=== PATIENT | male | born 1945 | race Caucasian/White ===

== ENCOUNTER 2023-07-06 11:18 | Inpatient (IN) | payer MEDICARE, MEDICAID ==
[2023-07-06 11:33] LABS: BASOPHILS ABSOLUTE AUTO 0.02 10^3/uL (0.00-0.50); BASOPHILS PERCENT AUTO 0.2 % (0-1); EOSINOPHILS ABSOLUTE AUTO 0.08 10^3/uL (0.00-1.50); EOSINOPHILS PERCENT AUTO 0.8 % (0-6); HEMATOCRIT 35.4 % (42.0-52.0); HEMOGLOBIN 10.8 g/dL (14.0-18.0); IMMATURE GRAN ABSOLUTE AUTO 0.21 10^3/uL (0.00-0.49); LYMPHOCYTES ABSOLUTE AUTO 0.83 10^3/uL (0.60-5.00); LYMPHOCYTES PERCENT AUTO 7.9 % (24-44); MEAN CORPUSCULAR HEMOGLOBIN 29.4 pg (27.0-32.0); MEAN CORPUSCULAR HGB CONC 30.5 g/dL (32.0-36.0); MEAN CORPUSCULAR VOLUME 96.5 fL (83.0-97.0); MONOCYTES ABSOLUTE AUTO 1.35 10^3/uL (0.00-1.50); MONOCYTES PERCENT AUTO 12.9 % (0-10); NEUTROPHILS ABSOLUTE AUTO 7.98 x10^3/uL (1.80-8.00); NEUTROPHILS PERCENT AUTO 76.2 % (41-71); PLATELET COUNT,PLT 298 10^3/uL (150-400); RED BLOOD CELL COUNT 3.67 x10^6/uL (4.50-6.00); WHITE BLOOD CELL COUNT,WBC 10.5 10^3/uL (4.0-11.0)
[2023-07-06 11:45] LABS: ALANINE AMINOTRANSFERASE,ALT 19 U/L (12-78); ALBUMIN 1.9 g/dL (3.4-5.0); ALKALINE PHOSPHATASE 118 U/L (46-116); ASPARTATE AMNIOTRANSFERASE,AST 19 U/L (15-37); BILIRUBIN TOTAL 0.6 mg/dL (0.0-1.0); BLOOD UREA NITROGEN,BUN 37 mg/dL (7-18); C-REACTIVE PROTEIN 14.96 mg/dL (<=0.50); CARBON DIOXIDE,CO2 29 mmol/L (21-32); CHLORIDE,CL 103 mEq/L (98-106); GLUCOSE RANDOM 129 mg/dL (75-99); MAGNESIUM 2.3 mg/dL (1.8-2.4); SODIUM,NA 140 mEq/L (136-145)
[2023-07-06 11:49] LABS: ESTIMATED GFR 77 mL/min (>=60); POTASSIUM,K 2.9 mEq/L (3.5-5.0)
[2023-07-06] MEDS ORDERED: Sodium Chloride 0.9% 10 ML Syringe FLUSH PRN (12:12)
[2023-07-06] MEDS ORDERED: Acetaminophen 325 MG Tab PO PRN (12:12)
[2023-07-06] MEDS ORDERED: Docusate Sodium 100 MG Cap PO PRN (12:12)
[2023-07-06] MEDS ORDERED: Ondansetron 4 MG Tab.DIS PO PRN (12:12)
[2023-07-06] MEDS ORDERED: Ondansetron 4 MG/2 ML SDV IV PRN (12:12)
[2023-07-06 12:50] LABS: APPEARANCE,URINE CLEAR (CLEAR); BILIRUBIN,URINE NEGATIVE (NEGATIVE); COLOR,URINE DARK YELLOW (YELLOW); GLUCOSE,URINE NEGATIVE (NEGATIVE); KETONES,URINE NEGATIVE (NEGATIVE); LEUKOCYTE ESTERASE,URINE TRACE (NEGATIVE); NITRITE,URINE NEGATIVE (NEGATIVE); OCCULT BLOOD,URINE NEGATIVE (NEGATIVE); PH,URINE 5.5 (4.5-8.0); PROTEIN,URINE NEGATIVE (NEGATIVE)
[2023-07-06 13:02] LABS: BACTERIA,URINE OCCASIONAL /HPF (NOT SEEN); EPITHELIAL CELLS,URINE NOT SEEN /HPF (NOT SEEN); MUCUS,URINE FEW /HPF (NOT SEEN); RBC,URINE NOT SEEN /HPF (0-5); WBC,URINE 0-5 /HPF (0-5)
[2023-07-06] MEDS: Iopamidol 755 Mg/ML 100 ML Bottle IVPUSH ONE (14:06)
[2023-07-06] MEDS: Sodium Chloride 0.9% 1,000 ML IV SCH (15:01)
[2023-07-06] MEDS: Potassium Chloride Riders 20 MEQ in Premix Bag 1 BAG IV SCH (15:13)
[2023-07-06] MEDS: Ampicillin/Sulbactam Na 3 GM in Sodium Chloride 0.9% 100 ML IV SCH (15:25)
[2023-07-06] MEDS: Furosemide 40 MG/4 ML VIAL IVPUSH SCH (16:00)
[2023-07-06] MEDS: Potassium Chloride Riders 50 ML ONE (17:13)
[2023-07-06] MEDS: Carvedilol 12.5 MG Tab PO SCH (17:17)
[2023-07-06] MEDS: risperiDONE 1 MG Tab PO SCH (19:29)
[2023-07-06] MEDS: Divalproex Sodium Delayed-Release 250 MG Tab.CR PO SCH (19:29)
[2023-07-06] MEDS: Potassium Chloride 20 MEQ Tab.ER PO SCH (19:29)
[2023-07-07 07:34] LABS: BASOPHILS ABSOLUTE AUTO 0.01 10^3/uL (0.00-0.50); BASOPHILS PERCENT AUTO 0.1 % (0-1); EOSINOPHILS ABSOLUTE AUTO 0.14 10^3/uL (0.00-1.50); EOSINOPHILS PERCENT AUTO 1.8 % (0-6); HEMATOCRIT 33.6 % (42.0-52.0); HEMOGLOBIN 10.4 g/dL (14.0-18.0); IMMATURE GRAN ABSOLUTE AUTO 0.25 10^3/uL (0.00-0.49); IMMATURE GRAN PERCENT AUTO 3.3 % (0.0-4.9); LYMPHOCYTES ABSOLUTE AUTO 0.82 10^3/uL (0.60-5.00); LYMPHOCYTES PERCENT AUTO 10.7 % (24-44); MEAN CORPUSCULAR HEMOGLOBIN 29.5 pg (27.0-32.0); MEAN CORPUSCULAR VOLUME 95.2 fL (83.0-97.0); MONOCYTES ABSOLUTE AUTO 1.01 10^3/uL (0.00-1.50); MONOCYTES PERCENT AUTO 13.1 % (0-10); NEUTROPHILS ABSOLUTE AUTO 5.46 x10^3/uL (1.80-8.00); PLATELET COUNT,PLT 274 10^3/uL (150-400); RED BLOOD CELL COUNT 3.53 x10^6/uL (4.50-6.00); WHITE BLOOD CELL COUNT,WBC 7.7 10^3/uL (4.0-11.0)
[2023-07-07] MEDS: Losartan 25 MG Tab PO SCH (07:48)
[2023-07-07] MEDS: Cholecalciferol (Vitamin D3) 5,000 UNIT Tab PO SCH (07:49)
[2023-07-07 07:52] LABS: C-REACTIVE PROTEIN 10.39 mg/dL (<=0.50); CALCIUM 7.5 mg/dL (8.4-10.1); CREATININE 0.8 mg/dL (0.7-1.3); EST CRCL DRUG DOSING (CG) 71.28 mL/min; POTASSIUM,K 3.9 mEq/L (3.5-5.0)
[2023-07-07] MEDS: Polyethylene Glycol 3350 Powder 17 GM Packet PO PRN (08:07)
[2023-07-07] MEDS: Enoxaparin 40 MG/0.4 ML Syringe SUBCUT SCH (11:07)
[2023-07-08 07:40] LABS: BASOPHILS ABSOLUTE AUTO 0.02 10^3/uL (0.00-0.50); BASOPHILS PERCENT AUTO 0.3 % (0-1); EOSINOPHILS ABSOLUTE AUTO 0.19 10^3/uL (0.00-1.50); EOSINOPHILS PERCENT AUTO 2.6 % (0-6); HEMATOCRIT 35.9 % (42.0-52.0); IMMATURE GRAN ABSOLUTE AUTO 0.15 10^3/uL (0.00-0.49); LYMPHOCYTES PERCENT AUTO 10.9 % (24-44); MEAN CORPUSCULAR HEMOGLOBIN 29.6 pg (27.0-32.0); MEAN CORPUSCULAR HGB CONC 30.6 g/dL (32.0-36.0); MEAN CORPUSCULAR VOLUME 96.5 fL (83.0-97.0); MONOCYTES PERCENT AUTO 12.2 % (0-10); PLATELET COUNT,PLT 289 10^3/uL (150-400); RED BLOOD CELL COUNT 3.72 x10^6/uL (4.50-6.00); WHITE BLOOD CELL COUNT,WBC 7.4 10^3/uL (4.0-11.0)
[2023-07-08 08:01] LABS: C-REACTIVE PROTEIN 8.35 mg/dL (<=0.50); CREATININE 0.9 mg/dL (0.7-1.3); EST CRCL DRUG DOSING (CG) 63.36 mL/min; POTASSIUM,K 3.7 mEq/L (3.5-5.0)
[2023-07-09 07:55] LABS: BASOPHILS ABSOLUTE AUTO 0.02 10^3/uL (0.00-0.50); BASOPHILS PERCENT AUTO 0.3 % (0-1); EOSINOPHILS ABSOLUTE AUTO 0.22 10^3/uL (0.00-1.50); EOSINOPHILS PERCENT AUTO 2.9 % (0-6); HEMATOCRIT 34.5 % (42.0-52.0); HEMOGLOBIN 10.6 g/dL (14.0-18.0); IMMATURE GRAN ABSOLUTE AUTO 0.12 10^3/uL (0.00-0.49); IMMATURE GRAN PERCENT AUTO 1.6 % (0.0-4.9); LYMPHOCYTES ABSOLUTE AUTO 0.99 10^3/uL (0.60-5.00); MEAN CORPUSCULAR HGB CONC 30.7 g/dL (32.0-36.0); MEAN CORPUSCULAR VOLUME 94.5 fL (83.0-97.0); MONOCYTES ABSOLUTE AUTO 1.06 10^3/uL (0.00-1.50); MONOCYTES PERCENT AUTO 13.9 % (0-10); NEUTROPHILS ABSOLUTE AUTO 5.22 x10^3/uL (1.80-8.00); NEUTROPHILS PERCENT AUTO 68.3 % (41-71); PLATELET COUNT,PLT 284 10^3/uL (150-400); RED BLOOD CELL COUNT 3.65 x10^6/uL (4.50-6.00); WHITE BLOOD CELL COUNT,WBC 7.6 10^3/uL (4.0-11.0)
[2023-07-09 08:03] LABS: C-REACTIVE PROTEIN 6.51 mg/dL (<=0.50); CALCIUM 7.7 mg/dL (8.4-10.1); EST CRCL DRUG DOSING (CG) 57.03 mL/min; POTASSIUM,K 4.2 mEq/L (3.5-5.0)
== END 2023-07-09 10:24 | disposition home or self-care (01) | DRG 178 ==
LOC: CC.FCMC 11:18 → CC.LAB 11:18 → CC.MS 11:59 → UNDOADMOB 11:59 → OBSVTOIN 12:12 → INTOOBSV 12:12 → CC.MS 12:12 → UNDOADMOB 12:12 → CC.MS 13:50 → OBSVTOIN 13:50
PROVIDERS: ADMIT Physician Assistant Medical; ATTEND Physician Assistant Medical
DX: J90 Pleural effusion, not elsewhere classified (principal); J69.0 Pneumonitis due to inhalation of food and vomit; E87.20 Acidosis, unspecified; J98.11 Atelectasis; Z66 Do not resuscitate; E86.0 Dehydration; I50.9 Heart failure, unspecified; F03.90 Unspecified dementia, unspecified severity, without behavioral disturbance, psychotic disturbance, mood disturbance, and anxiety; E87.6 Hypokalemia
CPT/HCPCS: 36415; 71046; 71260; 80053; 81001; 83605; 83735; 83880; 84145; 84484; 85025; 86140; 93005; G0378; 80048; 99223; 99232; 99233; 99239; A9270-GY; J0295; J1650; J1940; J3480; J3490; J7030; Q9967

== ENCOUNTER 2023-07-27 18:55 | Observation (INO) | payer MEDICAID ==
[2023-07-27 19:29] LABS: BASOPHILS ABSOLUTE AUTO 0.03 10^3/uL (0.00-0.50); BASOPHILS PERCENT AUTO 0.5 % (0-1); EOSINOPHILS PERCENT AUTO 4.6 % (0-6); HEMATOCRIT 33.4 % (42.0-52.0); HEMOGLOBIN 10.4 g/dL (14.0-18.0); IMMATURE GRAN ABSOLUTE AUTO 0.16 10^3/uL (0.00-0.49); IMMATURE GRAN PERCENT AUTO 2.4 % (0.0-4.9); LYMPHOCYTES ABSOLUTE AUTO 0.78 10^3/uL (0.60-5.00); LYMPHOCYTES PERCENT AUTO 11.9 % (24-44); MEAN CORPUSCULAR HEMOGLOBIN 29.1 pg (27.0-32.0); MEAN CORPUSCULAR HGB CONC 31.1 g/dL (32.0-36.0); MEAN CORPUSCULAR VOLUME 93.6 fL (83.0-97.0); MONOCYTES PERCENT AUTO 9.1 % (0-10); NEUTROPHILS PERCENT AUTO 71.5 % (41-71); PLATELET COUNT,PLT 243 10^3/uL (150-400); RED BLOOD CELL COUNT 3.57 x10^6/uL (4.50-6.00); WHITE BLOOD CELL COUNT,WBC 6.6 10^3/uL (4.0-11.0)
[2023-07-27 19:34] LABS: APPEARANCE,URINE CLEAR (CLEAR); BILIRUBIN,URINE NEGATIVE (NEGATIVE); COLOR,URINE YELLOW (YELLOW); GLUCOSE,URINE NEGATIVE (NEGATIVE); KETONES,URINE NEGATIVE (NEGATIVE); LEUKOCYTE ESTERASE,URINE NEGATIVE (NEGATIVE); NITRITE,URINE NEGATIVE (NEGATIVE); OCCULT BLOOD,URINE NEGATIVE (NEGATIVE); PH,URINE 7.5 (4.5-8.0); PROTEIN,URINE NEGATIVE (NEGATIVE)
[2023-07-27 19:44] LABS: ALBUMIN 2.1 g/dL (3.4-5.0); BILIRUBIN TOTAL 0.2 mg/dL (0.0-1.0); CALCIUM 8.1 mg/dL (8.4-10.1); CREATININE 0.8 mg/dL (0.7-1.3); EST CRCL DRUG DOSING (CG) 69.57 mL/min; POTASSIUM,K 4.6 mEq/L (3.5-5.0); PROTEIN TOTAL,TP 6.9 g/dL (6.4-8.2)
[2023-07-27] MEDS: levETIRAcetam in NaCl (iso-os) 1,000 MG in Premix Bag 1 BAG IV ONE (20:13)
[2023-07-27] MEDS ORDERED: Acetaminophen 325 MG Tab PO PRN (20:33)
[2023-07-27] MEDS ORDERED: Sodium Chloride 0.9% 10 ML Syringe FLUSH PRN (20:33)
[2023-07-27] MEDS ORDERED: Ondansetron 4 MG Tab.DIS PO PRN (20:33)
[2023-07-27] MEDS ORDERED: Ondansetron 4 MG/2 ML SDV IV PRN (20:33)
[2023-07-27] MEDS: risperiDONE 0.25 MG Tab PO SCH (21:26)
[2023-07-28 07:39] LABS: BASOPHILS ABSOLUTE AUTO 0.01 10^3/uL (0.00-0.50); BASOPHILS PERCENT AUTO 0.2 % (0-1); EOSINOPHILS ABSOLUTE AUTO 0.35 10^3/uL (0.00-1.50); EOSINOPHILS PERCENT AUTO 5.4 % (0-6); HEMATOCRIT 33.3 % (42.0-52.0); HEMOGLOBIN 10.5 g/dL (14.0-18.0); IMMATURE GRAN PERCENT AUTO 1.5 % (0.0-4.9); LYMPHOCYTES ABSOLUTE AUTO 1.04 10^3/uL (0.60-5.00); MEAN CORPUSCULAR HEMOGLOBIN 29.1 pg (27.0-32.0); MEAN CORPUSCULAR HGB CONC 31.5 g/dL (32.0-36.0); MEAN CORPUSCULAR VOLUME 92.2 fL (83.0-97.0); MONOCYTES ABSOLUTE AUTO 0.78 10^3/uL (0.00-1.50); NEUTROPHILS ABSOLUTE AUTO 4.21 x10^3/uL (1.80-8.00); NEUTROPHILS PERCENT AUTO 64.9 % (41-71); PLATELET COUNT,PLT 258 10^3/uL (150-400); RED BLOOD CELL COUNT 3.61 x10^6/uL (4.50-6.00); WHITE BLOOD CELL COUNT,WBC 6.5 10^3/uL (4.0-11.0)
[2023-07-28] MEDS: DIVALPROEX SODIUM 125 MG PO SCH (07:42)
[2023-07-28] MEDS: Potassium Chloride 20 MEQ Tab.ER PO SCH (07:43)
[2023-07-28] MEDS: Cholecalciferol (Vitamin D3) 5,000 UNIT Tab PO SCH (07:43)
[2023-07-28] MEDS: Losartan 25 MG Tab PO SCH (07:43)
[2023-07-28] MEDS: Carvedilol 12.5 MG Tab PO SCH (07:43)
[2023-07-28] MEDS: Furosemide 40 MG Tab PO SCH (07:44)
[2023-07-28] MEDS: levETIRAcetam 500 MG Tab PO SCH (07:44)
[2023-07-28 07:48] LABS: ALBUMIN 2.2 g/dL (3.4-5.0); BILIRUBIN TOTAL 0.4 mg/dL (0.0-1.0); C-REACTIVE PROTEIN 1.58 mg/dL (<=0.50); CALCIUM 8.2 mg/dL (8.4-10.1); CREATININE 0.7 mg/dL (0.7-1.3); EST CRCL DRUG DOSING (CG) 79.79 mL/min; POTASSIUM,K 3.9 mEq/L (3.5-5.0); PROTEIN TOTAL,TP 6.8 g/dL (6.4-8.2)
== END 2023-07-28 10:15 | disposition home or self-care (01) ==
LOC: CC.ED 18:55 → CC.MS 20:46
PROVIDERS: ADMIT Nurse Practitioner Family; ATTEND Nurse Practitioner Family
DX: R56.9 Unspecified convulsions (principal); I48.91 Unspecified atrial fibrillation; I50.9 Heart failure, unspecified; F03.90 Unspecified dementia, unspecified severity, without behavioral disturbance, psychotic disturbance, mood disturbance, and anxiety; Z79.899 Other long term (current) drug therapy
CPT/HCPCS: 36415; 71045; 80053; 80164; 80165; 81003; 83735; 84484; 85025; 86140; 93005; 96374; 99285-25; A9270-GY; G0378; J1953

== ENCOUNTER 2024-01-29 13:15 | Emergency (ER) | payer MEDICAID ==
[2024-01-29 13:48] LABS: BASOPHILS ABSOLUTE AUTO 0.02 10^3/uL (0.00-0.50); BASOPHILS PERCENT AUTO 0.4 % (0-1); EOSINOPHILS ABSOLUTE AUTO 0.31 10^3/uL (0.00-1.50); EOSINOPHILS PERCENT AUTO 5.8 % (0-6); HEMATOCRIT 38.5 % (42.0-52.0); HEMOGLOBIN 12.4 g/dL (14.0-18.0); IMMATURE GRAN ABSOLUTE AUTO 0.02 10^3/uL (0.00-0.49); IMMATURE GRAN PERCENT AUTO 0.4 % (0.0-4.9); LYMPHOCYTES ABSOLUTE AUTO 1.05 10^3/uL (0.60-5.00); LYMPHOCYTES PERCENT AUTO 19.7 % (24-44); MEAN CORPUSCULAR HEMOGLOBIN 30.7 pg (27.0-32.0); MEAN CORPUSCULAR HGB CONC 32.2 g/dL (32.0-36.0); MEAN CORPUSCULAR VOLUME 95.3 fL (83.0-97.0); MONOCYTES ABSOLUTE AUTO 0.68 10^3/uL (0.00-1.50); MONOCYTES PERCENT AUTO 12.8 % (0-10); NEUTROPHILS ABSOLUTE AUTO 3.24 x10^3/uL (1.80-8.00); NEUTROPHILS PERCENT AUTO 60.9 % (41-71); PLATELET COUNT,PLT 211 10^3/uL (150-400); RED BLOOD CELL COUNT 4.04 x10^6/uL (4.50-6.00); WHITE BLOOD CELL COUNT,WBC 5.3 10^3/uL (4.0-11.0)
[2024-01-29 14:01] LABS: ALANINE AMINOTRANSFERASE,ALT 12 U/L (12-78); ALBUMIN 3.4 g/dL (3.4-5.0); ALKALINE PHOSPHATASE 68 U/L (46-116); ASPARTATE AMNIOTRANSFERASE,AST 6 U/L (15-37); BILIRUBIN TOTAL 0.6 mg/dL (0.0-1.0); BLOOD UREA NITROGEN,BUN 24 mg/dL (7-18); CALCIUM 8.5 mg/dL (8.4-10.1); CARBON DIOXIDE,CO2 32 mmol/L (21-32); CHLORIDE,CL 103 mEq/L (98-106); CREATININE 0.8 mg/dL (0.7-1.3); EST CRCL DRUG DOSING (CG) 68.84 mL/min; ETHANOL BLOOD MEDICAL 3 mg/dL (0-3); GLUCOSE RANDOM 71 mg/dL (75-99); POTASSIUM,K 4.3 mEq/L (3.5-5.0); SODIUM,NA 142 mEq/L (136-145)
[2024-01-29 14:02] LABS: C-REACTIVE PROTEIN < 0.50 mg/dL (<=0.50); ESTIMATED GFR 91 mL/min (>=60)
[2024-01-29 15:14] VITALS: BP 129/85; PULSE 79
== END 2024-01-29 14:55 ==
LOC: CC.ED 13:15
DX: R45.851 Suicidal ideations (principal); R45.850 Homicidal ideations; F31.12 Bipolar disorder, current episode manic without psychotic features, moderate
CPT/HCPCS: 36415; 80053; 80307; 85025; 86140; 99285